=== PATIENT | female | born 1935 | race Caucasian/White ===

== ENCOUNTER → 2016-12-08 | Outpatient (REF) | payer MEDICARE, OTHER ==
[2016-12-11 00:07] LABS: Lyme Disease IgG/IgM Antibodie <0.91 ISR (0.00-0.90); Lyme Disease IgM Ab Quantitati <0.80 index (0.00-0.79)
== END ==
LOC: M LAB REF 13:41
PROVIDERS: ATTEND Internal Medicine
DX: L03.116 Cellulitis of left lower limb (principal)

== ENCOUNTER → 2017-06-04 | Outpatient (CLI) | payer MEDICARE, OTHER ==
[2017-06-04 15:49] LABS: BASO % 0.4 % (0.0-1.0); EOS # 0.1 10^3/uL (0.0-0.50); HEMATOCRIT 40.4 % (36.0-47.0); HEMOGLOBIN 13.3 g/dl (12.0-16.0); IMMATURE GRANULOCYTE % 0.1 % (0-3.0); LYMPH # 1.9 10^3/uL (1.5-4.5); MEAN CORPUSCULAR HEMOGLOBIN 31.9 pg (27.0-33.0); MEAN CORPUSCULAR HGB CONC 32.9 g/dl (32.0-36.5); MEAN CORPUSCULAR VOLUME 96.9 fl (80.0-96.0); MONO # 0.7 10^3/uL (0.0-0.8); MONO % 9.7 % (0.0-5.0); NEUTROPHILS # 4.1 10^3/uL (1.8-7.7); NEUTROPHILS % 60.8 % (36.0-66.0); PLATELET COUNT, AUTOMATED 210 10^3/uL (150-450); RED BLOOD COUNT 4.17 10^6/uL (4.00-5.40); RED CELL DISTRIBUTION WIDTH 12.7 % (11.5-14.5); WHITE BLOOD COUNT 6.7 10^3/uL (4.0-10.0)
[2017-06-04 16:00] LABS: INR 0.97
[2017-06-04 16:01] LABS: PARTIAL THROMBOPLASTIN TIME 29.9 SECONDS (26.8-37.9)
[2017-06-04 16:18] LABS: ALBUMIN 3.9 GM/DL (3.2-5.2); ALBUMIN/GLOBULIN RATIO 1.08 (1.00-1.93); ALKALINE PHOSPHATASE 96 U/L (45-117); ALT/SGPT 20 U/L (12-78); ANION GAP 6 MEQ/L (8-16); AST/SGOT 20 U/L (7-37); BILIRUBIN,TOTAL 0.4 MG/DL (0.2-1.0); BLOOD UREA NITROGEN 17 MG/DL (7-18); CALCIUM LEVEL 8.7 MG/DL (8.8-10.2); CARBON DIOXIDE LEVEL 30 MEQ/L (21-32); CHLORIDE LEVEL 105 MEQ/L (98-107); CREATININE FOR GFR 0.86 MG/DL (0.55-1.30); GLOMERULAR FILTRATION RATE > 60.0 (>32); GLUCOSE, FASTING 102 MG/DL (70-100); POTASSIUM SERUM 4.2 MEQ/L (3.5-5.1); SODIUM LEVEL 141 MEQ/L (136-145); TOTAL PROTEIN 7.5 GM/DL (6.4-8.2)
== END ==
LOC: M LAB 15:20
DX: I35.2 Nonrheumatic aortic (valve) stenosis with insufficiency (principal)
CPT/HCPCS: 80053

== ENCOUNTER 2017-06-15 16:53 | Emergency (ER) | payer MEDICARE, OTHER | END 2017-06-15 19:39 | disposition home or self-care (01) | LOC: M ED 16:53 | DX: G89.18 Other acute postprocedural pain (principal); M79.601 Pain in right arm; Z98.61 Coronary angioplasty status; I10 Essential (primary) hypertension; E78.5 Hyperlipidemia, unspecified; K21.9 Gastro-esophageal reflux disease without esophagitis; I35.0 Nonrheumatic aortic (valve) stenosis; R01.1 Cardiac murmur, unspecified; Z79.899 Other long term (current) drug therapy; Z88.8 Allergy status to other drugs, medicaments and biological substances | CPT/HCPCS: 93971 ==

== ENCOUNTER → 2018-06-28 | Outpatient (REF) | payer MEDICARE, OTHER ==
[~2018-06-28] MED LIST: CHLO125TA; CO Q200C10 PO; CRES5TAB; D 50CAP PO; ESCI10TA2; ESTR1CRE VA; FLUTISP; LANS15CA; LEVO75TA4; LISI-538; LORA-243; LORA0.5T11; NORCOTAB PO; SYST1SOL OU
[2018-06-28 18:55] LABS: BACTERIA, URINE AUTO NEGATIVE (NEGATIVE); RBC, URINE AUTO 3 /HPF (0-3); SQUAMOUS EPITHELIAL CELL UR AU 0 /HPF (0-6); WBC, URINE AUTO 1 /HPF (0-3)
== END ==
LOC: M LAB REF 16:59
PROVIDERS: ATTEND Internal Medicine
DX: R31.9 Hematuria, unspecified (principal)

== ENCOUNTER → 2018-10-26 | Outpatient (REF) | payer MEDICARE, OTHER ==
[~2018-10-26] MED LIST changes: +HYDR-3715 PO; -NORCOTAB PO
== END ==
LOC: M LAB REF 12:33
PROVIDERS: ATTEND Internal Medicine
DX: R06.02 Shortness of breath (principal)

== ENCOUNTER → 2018-12-23 | Outpatient (CLI) | payer MEDICARE, OTHER ==
[~2018-12-23] MED LIST changes: +ASPI81TA85 PO; +COLA100C5 PO; +CRES20TA2 PO; -LANS15CA; +LANS15CA PO; +LEVO88TA3 PO; +LEXA1TAB PO; -LORA-243; +LORA-243 PO; -LORA0.5T11; +LORA0.5T5 PO; +METO1TAB7 PO; +PLAV1TAB2 PO; +TRAM50TA2 PO
--- NOTE | 2018-12-23 16:25 | REP ---
Chest x-ray: Two views. History: Shortness of breath. Comparison chest x-ray: February 20, 2014. Findings: The patient is status post aortic valve replacement. The lungs are hyperinflated but clear. The pleural angles are sharp. The heart is not enlarged. The aorta is calcific and a little tortuous. Pulmonary vasculature is not increased. No significant bony abnormality is seen. Impression: Status post aortic valve replacement. No acute disease. Hyperinflation. Electronically Signed by James Odom MD 12/23/2018 04:17 P
== END ==
LOC: M RAD 15:41
PROVIDERS: ATTEND Internal Medicine
DX: R06.02 Shortness of breath (principal); Z98.890 Other specified postprocedural states; Z95.2 Presence of prosthetic heart valve

== ENCOUNTER 2019-02-21 13:04 | Outpatient (RCR) | payer MEDICARE, OTHER ==
--- NOTE | 2019-01-28 15:01 | CARECAPL ---
Assessment Account #s: Initial Assessment General Diagnoses: AVR (TAVR) Date of event: Dec 01, 2018 Physician: Sarahi Cerda Allergies: Coded Allergies: MS - Nitrofurantoin (Verified Allergy, Unknown, 10/05/17) Date Entered Program: Jan 28, 2019 Risk strat for cardiac event: Moderate Exercise Date: Jan 28, 2019 Assessment: Initial Assessment Stages of change: Preperation Exercise Prescription Plan TO EDUCATE AND BUILD ENDURANCE THROUGH MONITORED EXERCISE Modalities initiated: Treadmill (WILL ADD), Cardio-Strider (WILL ADD), Nustep (WILL ADD), Arm Aerometer (WILL ADD), Dumbells (WILL ADD), Recumbent Bike (WILL ADD) Frequency: 3 Duration (Minutes) 30 - 60 minutes total exercise a day. 15 - 20 work intervals in minutes. PRN rest intervals in minutes. Functional Capacity Goal Sustained Metabolic Equivalent of a task (MET) goal of 2.5-3.5 for 15-20 minutes. Intensity: 3-Moderate Progression (METS) Increase by: 0.5 METS every: 5 sessions TOLERATED Angina with ex: No Target Heart Rate REST +35-40 BETA JEANETTE THERAPY Resistance Training: Yes Weight (pounds): 1 Reps: 8-12 Hypertension: Yes Hypertension controlled with: Medication (METOPROLOL) Resting 143/66 Medications Scheduled Aspirin (Aspir 81), 81 MG PO DAILY, (Reported) Cholecalciferol (Vitamin D3) (Vitamin D3), 5,000 UNIT PO DAILY, (Reported) Clopidogrel Bisulfate (Plavix), 75 MG PO DAILY, (Reported) Escitalopram Oxalate (Lexapro), 10 MG PO DAILY, (Reported) Estradiol (Estrace), 0.1 MG VA 2XWK, (Reported) Lansoprazole (Lansoprazole), 15 MG PO DAILY, (Reported) Levothyroxine Sodium (Levothyroxine Sodium), 88 MCG PO DAILY, (Reported) Loratadine (Loratadine), 10 MG PO DAILY, (Reported) Metoprolol Succinate (Metoprolol Succinate), 50 MG PO QHS, (Reported) Rosuvastatin Calcium (Crestor), 20 MG PO DAILY, (Reported) Ubidecarenone (Co Q-10), 200 MG PO DAILY, (Reported) Scheduled PRN Docusate Sodium (Colace), 100 MG PO DAILYPRN PRN for CONSTIPATION, (Reported) Fluticasone Propionate (Fluticasone Propionate), 1 SPRAY NA DAILYPRN PRN for CONGESTION, (Reported) Lorazepam (Lorazepam), 0.5 MG PO BIDP PRN for ANXIETY, (Reported) Tramadol HCl (Tramadol HCl), 50 MG PO QHSP PRN for pain, (Reported) Miscellaneous Medications Escitalopram Oxalate (Escitalopram Oxalate), (Reported) Propylene Glycol/Peg 400 (Systane 0.3-0.4% Eye Drops), 1 DROP OU, (Reported) Discontinued Medications Chlorthalidone (Chlorthalidone), (Reported) Discontinued Reason: Pt states not taking Hydrocodone/Acetaminophen (Hydrocodone-Acetamin 5-325 mg), 1 TAB PO Q6H PRN for PAIN Discontinued Reason: Pt states not taking Levothyroxine Sodium (Levothyroxine Sodium), (Reported) Discontinued Reason: Pt states not taking Lisinopril (Lisinopril), (Reported) Discontinued Reason: Pt states not taking Rosuvastatin Calcium (Crestor), (Reported) Discontinued Reason: Pt states not taking Med Change: No Intervention Resistance Training: Yes Education: RPE Scale (REVIEWED RPE SCALE USED IN CARDIAC REHAB, PATIENT VERBALIZES UNDERSTANDING), warm up/cool down (INSTRUCTED PATIENT TO WARM UP / COOL DOWN PRIOR TO AND FOLLOWING EXERCISE), Understand BP (DISCUSSED NORMAL B/P FOR PATIENT), Physical Active (DISCUSSED IMPORTANCE OF CONTINUING TO EXERCISE FOLLOWING CARDIAC REHAB PROGRAM) Target Goals Individual exercise Rx (1) BP 140/90 or 130/80 if DM or CKD (1) Aerobic active 30+min 5 days per week (1) Nutrition Date: Jan 28, 2019 Assessment: Initial Assessment Stages of change: Preperation Lipid- med/supplement CRESTOR 20 MG DAILY Med Change: No Diabetes Diabetes: No Monitor Blood Sugar at home: No Medication Change: No Weight Management Weight (lbs): 149.4 Height (inches): 64 Waist Circumference (Inches): 36 BMI: 25.6 Weight goal: 140 Special Diet: regular Vitamin/Supplements: Vitamin D, Other (C0Q10) Alcohol: daily Alcohol Type: wine, liquor (GIN,VODKA,WINE/2 DRINKS DAILY) Alcohol Amount: 2 Diet Access Tool: Rate your plate Score: 81 Current Weight (pounds): 149.4 Weight Goal 140 Intervention Musical Engineer Consult: No Nurse/patient discussion: Yes Dietary Goals TO MAKE HEART HEALTHY CHOICES Diet Class: Yes (WILL SEE HOSPITAL AIDES AND ASSISTANTS TEACHER WHILE IN PROGRAM) Referral to Diabetes education: No Referral to lipid clinic: No Referral to weight mangement p: No Education Eating Healthy Target goal LDL-C<100 if triglycerides are >200 Non-HDL-C should be <130 (1) LDL-C<70 for high risk patients (4) HbA1c<7% (1) BMI<25 Waist cir<40in M/<35in F (1) Education Date: Jan 28, 2019 Assessment: Initial Assessment Learning Barriers: ready Knowledge Test Score: 4 Stages of change: Preperation Family Support: Yes Tobacco use: No Quit: >6 months (QUIT AT AGE 26) Tobacco Use Smokeless tobacco: No Intervention Referral to smoking cessation: No Individual education and couns: No Tobacco Adjunct: No Education class schedule given: No Attended education classes: No Education: med compliance (WILL DISCUSS IMPORTANCE OF MED COMPLIANCE) Target Goals Complete cessation of tobacco use (1). Psychosocial Date: Jan 28, 2019 Assessment: Initial Assessment Psych Test (Initial/Discharge) Tool Used: Other (PHQ-9) Score: 0 Stages of change: Preperation Intervention Physician Consult: No Physician Referral: No Psychotropic medication LEXAPRO 10 MG DAILY Med Change: No Stress Management Class: No Uses Stress Management Skills: Yes Education Education: Coping Techniques, S/S depression, Relaxation Techniques Target Goal Assess presence or absence of depression using a valid screening tool (1). Maximize coping skills (2). Positive support system (2). Patient/Program Goal Preventative Medication: Yes Aspirin, Yes Beta blockade, Yes Statin/OTR lipid Lowering Fall Risk Assess: Yes (NOT A FALL RISK) Provider Assessment Session Number: 1 Provider Assessment: Proceed with rehab Ramsey Wilkinson RN Jan 28, 2019 15:01
[~2019-02-21 13:04] MED LIST changes: +LORA0.5T11 PO; -LORA0.5T5 PO
--- NOTE | 2019-02-21 17:38 | CARECAPL ---
Assessment Account #s: Re-Assessment I General Diagnoses: AVR (TAVR) Date of event: Dec 01, 2008 Physician: Sarahi Cerda Allergies: Coded Allergies: MS - Nitrofurantoin (Verified Allergy, Unknown, 10/05/17) Date Entered Program: Jan 28, 2019 Risk strat for cardiac event: Moderate Exercise Date: Feb 21, 2019 Assessment: Re-Assessment I Stages of change: Preperation Exercise Prescription Plan TO EDUCATE AND BUILD CARDIOVASCULAR ENDURANCE THROUGH MONITORED EXERCISE Modalities initiated: Treadmill (METS=2.63/RPE=3.5), Cardio-Strider (METS=2.4/RPE=3), Arm Aerometer (METS=2.0/RPE=3), Dumbells (2#/RPE=3), Recumbent Bike (METS=2.6/RPE=3) Frequency: 3 Duration (Minutes) 30 - 60 minutes total exercise a day. 15 - 20 work intervals in minutes. PRN rest intervals in minutes. Functional Capacity Goal Sustained Metabolic Equivalent of a task (MET) goal of 2.5-3.5 for 15-20 minutes. Intensity: 3-Moderate Progression (METS) Increase by: 0.5 METS every: 5 sessions TOLERATED Angina with ex: No Target Heart Rate REST +35-40 PER BETA JEANETTE THERAPY Resistance Training: Yes Weight (pounds): 2 Reps: 8-12 Hypertension: Yes Hypertension controlled with: Medication (METOPROLOL) Resting 118/68 Peak Exercise BP 146/84 Medications Scheduled Aspirin (Aspir 81), 81 MG PO DAILY, (Reported) Cholecalciferol (Vitamin D3) (Vitamin D3), 5,000 UNIT PO DAILY, (Reported) Clopidogrel Bisulfate (Plavix), 75 MG PO DAILY, (Reported) Escitalopram Oxalate (Lexapro), 10 MG PO DAILY, (Reported) Estradiol (Estrace), 0.1 MG VA 2XWK, (Reported) Lansoprazole (Lansoprazole), 15 MG PO DAILY, (Reported) Levothyroxine Sodium (Levothyroxine Sodium), 88 MCG PO DAILY, (Reported) Loratadine (Loratadine), 10 MG PO DAILY, (Reported) Metoprolol Succinate (Metoprolol Succinate), 50 MG PO QHS, (Reported) Rosuvastatin Calcium (Crestor), 20 MG PO DAILY, (Reported) Ubidecarenone (Co Q-10), 200 MG PO DAILY, (Reported) Scheduled PRN Docusate Sodium (Colace), 100 MG PO DAILYPRN PRN for CONSTIPATION, (Reported) Fluticasone Propionate (Fluticasone Propionate), 1 SPRAY NA DAILYPRN PRN for CONGESTION, (Reported) Lorazepam (Lorazepam), 0.5 MG PO BIDP PRN for ANXIETY, (Reported) Tramadol HCl (Tramadol HCl), 50 MG PO QHSP PRN for pain, (Reported) Miscellaneous Medications Escitalopram Oxalate (Escitalopram Oxalate), (Reported) Propylene Glycol/Peg 400 (Systane 0.3-0.4% Eye Drops), 1 DROP OU, (Reported) Current BP 110/64 Med Change: No Intervention Home exercise: Type (WALKING, HAND WEIGHTS, JOIN LOCAL [employer] OR [id number]), Frequency (3-5 DAYS PER WEEK), Duration (30-60 MINUTES) Resistance Training: Yes Education: Self pulse (PATIENT DEMONSTRATES INDEPENDENTLY HOW TO TAKE HER OWN PULSE), Ex safety (PATIENT VERBALIZES UNDERSTANDING OF EXERCISING SAFTELY, WARM UP/COOL DOWN, STAY HYDRATED, COMFORTABLE CLOTHES AND SHOES), S/S to report (PT VERBALIZES UNDERSTANDING OF REPORTING CHEST PAIN, PRESSURE, SOB), Low NA diet (PATIENT VERBALIZES UNDERSTANDING OF IMPORTANCE OF STAYING ON LOW SODIUM DIET, IN RELATION TO B/P AND RETAINING FLUID), BP medication (DISCUSSED WHAT IS NORMAL B/P FOR THIS PATIENT), RPE Scale (REVIEWED RPE SCALE TO RATE EACH PIECE OF EQUIPMENT FOLLOWING EXERCISE, PATIENT VERBALIZES UNDERSTANDING), Equipment orientation (ORIENTED PATIENT TO EACH PIECE OF EQUIPMENT ADDED TO EXERCISE REGIMEN), warm up/cool down (PATIENT DEMONSTRATES INDEPENDENTLY WARM UP/COOL DOWN PRIOR TO AND FOLLOWING EXERCISE), Understand BP (REVIEWED B/P MEDS AND IDEAL B/P, PATIENT VERBALIZES UNDERSTANDING), Physical Active (PT VERBALIZES UNDERSTANDING OF IMPORTANCE OF CONTINUED EXERCISE FOLLOWING CARDIAC REHAB PROGRAM) Education Goals Met: No (PROGRESSING TOWARD GOALS) Target Goals Individual exercise Rx (1) BP 140/90 or 130/80 if DM or CKD (1) Aerobic active 30+min 5 days per week (1) Nutrition Date: Feb 21, 2019 Assessment: Re-Assessment I Stages of change: Preperation Lipid- med/supplement CRESTOR 20 MG PO DAILY Med Change: No Diabetes Diabetes: No Monitor Blood Sugar at home: No Medication Change: No Weight Management Weight (lbs): 149.4 Special Diet: low salt, low-fat Vitamin/Supplements: Vitamin D, Other (COQ10) Alcohol: daily Alcohol Type: wine, liquor (GIN, VODKA, WINE/2 DRINKS DAILY) Current Weight (pounds): 149.4 Intervention Research Staff Member Consult: No Nurse/patient discussion: Yes Dietary Goals TO MAKE HEART HEALTHY CHOICES CONSISTENTLY Diet Class: Yes (WILL SEE SECOND OFFICER WHILE IN PROGRAM) Referral to Diabetes education: No Referral to lipid clinic: No Referral to weight mangement p: No Education Eating Healthy Education Goals Met: No (PROGRESSING TOWARD GOALS) Target goal LDL-C<100 if triglycerides are >200 Non-HDL-C should be <130 (1) LDL-C<70 for high risk patients (4) HbA1c<7% (1) BMI<25 Waist cir<40in M/<35in F (1) Education Date: Feb 21, 2019 Assessment: Re-Assessment I Learning Barriers: ready Stages of change: Preperation Family Support: Yes Tobacco use: No Tobacco Use Smokeless tobacco: No Intervention Referral to smoking cessation: No Individual education and couns: No Tobacco Adjunct: No Education class schedule given: No Attended education classes: No Education: Risk factors (REVIEWED HIGH CHOL, HIGH B/P, LACK OF EXERCISE RISK FACTORS FOR CARDIOVASCULAR DISEASE), cardiac A&P (EDUCATIONAL MATERIAL GIVEN, REVIEWED ANATOMY OF HEART WITH PATIENT), Angina S/S (EDUCATIONAL MATERIAL GIVEN, DISCUSSED ANGINA, S/S AND WHAT TO DO IN CASE OF ANGINA) Education Goals Met: No (PROGRESSING TOWARD GOALS) Target Goals Complete cessation of tobacco use (1). Psychosocial Date: Feb 21, 2019 Assessment: Re-Assessment I Stages of change: Preperation Intervention Physician Consult: No Physician Referral: No Med Change: No Stress Management Class: No Uses Stress Management Skills: Yes Education Education: Coping Techniques (DISCUSSED POSSIBLE COPING TECHNIQUES SUCH TALKING), S/S depression (REVIEWED S/S OF DEPRESSION SUCH WITHDRAWAL, LACK OF INTEREST, LACK OF APPETITE), Relaxation Techniques (DISCUSSED TAKING TIME FOR SELF, QUIET TIME, READING, LISTENING TO MUSIC) Education Goals Met: No (PROGRESSING TOWARD GOALS) Target Goal Assess presence or absence of depression using a valid screening tool (1). Maximize coping skills (2). Positive support system (2). Patient/Program Goal Preventative Medication: Yes Aspirin, Yes Beta blockade, Yes Statin/OTR lipid Lowering Fall Risk Assess: Yes (NOT A FALL RISK) Provider Assessment Session Number: 5 Provider Assessment: Proceed with rehab Ramsey Wilkinson RN Feb 21, 2019 17:38
== END 2019-02-24 ==
LOC: M CR 13:04
PROVIDERS: ATTEND Internal Medicine
DX: Z95.4 Presence of other heart-valve replacement (principal)

== ENCOUNTER 2019-03-23 14:17 | Outpatient (RCR) | payer MEDICARE, OTHER ==
--- NOTE | 2019-03-14 11:29 | CARECAPL ---
Assessment Account #s: Re-Assessment II General Diagnoses: AVR ((TAVR)) Date of event: Dec 01, 2018 Physician: Sarahi Cerda Allergies: Coded Allergies: MS - Nitrofurantoin (Verified Allergy, Unknown, 10/05/17) Date Entered Program: Jan 28, 2019 Risk strat for cardiac event: Moderate Exercise Date: Mar 14, 2019 Assessment: Re-Assessment II Exercise Prescription Modalities initiated: Treadmill (1.7/1.5 MTS 2.54 RPE 3.5 12 MINUTES), Nustep (L5 MTS 4.5 RPE 3.5 10 MINUTES), Arm Aerometer (2.5 MTS 2.4 RPE 3 10 MINUTES), Dumbells, Recumbent Bike (R2 MTS 3.2 RPE 3.5 10 MINUTES) Duration (Minutes) 30 - 60 minutes total exercise a day. 15 - 20 work intervals in minutes. PRN rest intervals in minutes. Functional Capacity Goal Sustained Metabolic Equivalent of a task (MET) goal of 3.0-3.5 for 15-20 minutes. Progression (METS) Increase by: METS every: sessions Angina with ex: No Resistance Training: Yes Weight (pounds): 3 Reps: 6-8 Hypertension: Yes (148/88) Hypertension controlled with: Medication Resting 148/88 Peak Exercise BP 140/90 Meds SEE BELOW Medications Scheduled Aspirin (Aspir 81), 81 MG PO DAILY, (Reported) Cholecalciferol (Vitamin D3) (Vitamin D3), 5,000 UNIT PO DAILY, (Reported) Clopidogrel Bisulfate (Plavix), 75 MG PO DAILY, (Reported) Escitalopram Oxalate (Lexapro), 10 MG PO DAILY, (Reported) Estradiol (Estrace), 0.1 MG VA 2XWK, (Reported) Lansoprazole (Lansoprazole), 15 MG PO DAILY, (Reported) Levothyroxine Sodium (Levothyroxine Sodium), 88 MCG PO DAILY, (Reported) Loratadine (Loratadine), 10 MG PO DAILY, (Reported) Metoprolol Succinate (Metoprolol Succinate), 50 MG PO QHS, (Reported) Rosuvastatin Calcium (Crestor), 20 MG PO DAILY, (Reported) Ubidecarenone (Co Q-10), 200 MG PO DAILY, (Reported) Scheduled PRN Docusate Sodium (Colace), 100 MG PO DAILYPRN PRN for CONSTIPATION, (Reported) Fluticasone Propionate (Fluticasone Propionate), 1 SPRAY NA DAILYPRN PRN for CONGESTION, (Reported) Lorazepam (Lorazepam), 0.5 MG PO BIDP PRN for ANXIETY, (Reported) Tramadol HCl (Tramadol HCl), 50 MG PO QHSP PRN for pain, (Reported) Miscellaneous Medications Escitalopram Oxalate (Escitalopram Oxalate), (Reported) Propylene Glycol/Peg 400 (Systane 0.3-0.4% Eye Drops), 1 DROP OU, (Reported) Current BP 110/60 AFTER EXERCISE Med Change: No Intervention Home exercise: Type (WALKING, JOIN LOCAL GYM, [facility]), Frequency (3-5 DAYS A WEEK), Duration (30-60 MINUTES) Resistance Training: Yes (15-20 MINUTES 3-5 TIMES PER WEEK) Education Goals Met: Yes (SEE PRIOR ITP FOR EDUCATION COMPLETED) Target Goals Individual exercise Rx (1) BP 140/90 or 130/80 if DM or CKD (1) Aerobic active 30+min 5 days per week (1) Nutrition Date: Mar 14, 2019 Assessment: Re-Assessment II Stages of change: Contemplate Diabetes Diabetes: No Current Weight (pounds): 143 Intervention Stitch Burnisher Consult: Yes (WILL SEE DURING PROGRAM) Education Goals Met: No (PROGRESSING TOWARD GOALS) Target goal LDL-C<100 if triglycerides are >200 Non-HDL-C should be <130 (1) LDL-C<70 for high risk patients (4) HbA1c<7% (1) BMI<25 Waist cir<40in M/<35in F (1) Education Date: Mar 14, 2019 Assessment: Re-Assessment II Intervention Education class schedule given: Yes Education: med compliance (VERBALIZES IMPORTANCE OF TAKING MEDICATIONS), cardiac A&P (REVIEWED ANTOMY & PHYSIOLOGY) Education Goals Met: No (PROGRESSING TOWARD GOALS) Target Goals Complete cessation of tobacco use (1). Psychosocial Date: Mar 14, 2019 Assessment: Re-Assessment II Stress Management Class: Yes Uses Stress Management Skills: Yes Education Education: Coping Techniques (REVIEWED HOW TO HANDLE STRESS-VERY NERVOUS ABOUT EXERCISE) Education Goals Met: No (PROGRESSING) Target Goal Assess presence or absence of depression using a valid screening tool (1). Maximize coping skills (2). Positive support system (2). Provider Assessment Session Number: 9 Provider Assessment: No changes Theresa Antonio RN Mar 14, 2019 11:29
== END 2019-03-26 ==
LOC: M CR 14:17
PROVIDERS: ATTEND Internal Medicine
DX: Z51.89 Encounter for other specified aftercare (principal); Z95.4 Presence of other heart-valve replacement

== ENCOUNTER 2019-04-25 12:54 | Outpatient (RCR) | payer MEDICARE, OTHER ==
--- NOTE | 2019-04-04 08:30 | CARECAPL ---
Assessment Account #s: Re-Assessment II General Diagnoses: AVR (TVAR) Date of event: Dec 01, 2018 Physician: Sarahi Cerda Allergies: Coded Allergies: MS - Nitrofurantoin (Verified Allergy, Unknown, 10/05/17) Date Entered Program: Feb 04, 2019 Risk strat for cardiac event: Moderate Exercise Date: Apr 01, 2019 Assessment: Re-Assessment II Stages of change: Preperation Exercise Prescription Plan Educate on cardiovascular disease and increase endurance, strength and flexibility through a monitored exercise program. Modalities initiated: Treadmill (speed 2.0 incline 1.5 for 15 minutes Mets 2.81 RPE 3), Nustep (Resistance of 5 for 15 minutes Mets 4.3 RPE 3), Dumbells (3lbs 1 set 10 reps RPE 3), Recumbent Bike (resistance of 2 for 10 minutes Mets 2.6 RPE 3) Frequency: 2-3 Duration (Minutes) 30 - 60 minutes total exercise a day. 15 - 20 work intervals in minutes. PRN rest intervals in minutes. Functional Capacity Goal Sustained Metabolic Equivalent of a task (MET) goal of 3.5-4.5 for 15-20 minutes. Intensity: 3-Moderate Progression (METS) Increase by: 0.5 METS every: 3-5 sessions Angina with ex: No Target Heart Rate rest + 35-40 per beta malini therapy. Resistance Training: Yes Weight (pounds): 3 Reps: 8-12 Medications Scheduled Aspirin (Aspir 81), 81 MG PO DAILY, (Reported) Cholecalciferol (Vitamin D3) (Vitamin D3), 5,000 UNIT PO DAILY, (Reported) Clopidogrel Bisulfate (Plavix), 75 MG PO DAILY, (Reported) Escitalopram Oxalate (Lexapro), 10 MG PO DAILY, (Reported) Estradiol (Estrace), 0.1 MG VA 2XWK, (Reported) Lansoprazole (Lansoprazole), 15 MG PO DAILY, (Reported) Levothyroxine Sodium (Levothyroxine Sodium), 88 MCG PO DAILY, (Reported) Loratadine (Loratadine), 10 MG PO DAILY, (Reported) Metoprolol Succinate (Metoprolol Succinate), 50 MG PO QHS, (Reported) Rosuvastatin Calcium (Crestor), 20 MG PO DAILY, (Reported) Ubidecarenone (Co Q-10), 200 MG PO DAILY, (Reported) Scheduled PRN Docusate Sodium (Colace), 100 MG PO DAILYPRN PRN for CONSTIPATION, (Reported) Fluticasone Propionate (Fluticasone Propionate), 1 SPRAY NA DAILYPRN PRN for CONGESTION, (Reported) Lorazepam (Lorazepam), 0.5 MG PO BIDP PRN for ANXIETY, (Reported) Tramadol HCl (Tramadol HCl), 50 MG PO QHSP PRN for pain, (Reported) Miscellaneous Medications Escitalopram Oxalate (Escitalopram Oxalate), (Reported) Propylene Glycol/Peg 400 (Systane 0.3-0.4% Eye Drops), 1 DROP OU, (Reported) Current BP 128/80 Med Change: No Intervention Education: BP medication (Patient stated the purpose of metoprolol is to low BP and heart rate.) Education Goals Met: No (See education on prior ITP will continue to educate further.) Target Goals Individual exercise Rx (1) BP 140/90 or 130/80 if DM or CKD (1) Aerobic active 30+min 5 days per week (1) Nutrition Date: Apr 04, 2019 Assessment: Re-Assessment II Stages of change: Preperation Med Change: No Diabetes Diabetes: No Current Weight (pounds): 145.4 Intervention Lozenge Maker Helper Consult: No Nurse/patient discussion: Yes Dietary Goals eat healthier portions. Diet Class: No Education Goals Met: No (See education on prior ITP's but we will continue to educate throughout program.) Target goal LDL-C<100 if triglycerides are >200 Non-HDL-C should be <130 (1) LDL-C<70 for high risk patients (4) HbA1c<7% (1) BMI<25 Waist cir<40in M/<35in F (1) Education Date: Apr 04, 2019 Assessment: Re-Assessment II Stages of change: Preperation Education Goals Met: No (See education on prior ITP's but we will educate throughout program.) Target Goals Complete cessation of tobacco use (1). Psychosocial Date: Apr 04, 2019 Assessment: Re-Assessment II Stages of change: Preperation Med Change: No Stress Management Class: Yes Uses Stress Management Skills: Yes Education Goals Met: No (See educate on prior ITP's but we will continue to educate throughout program.) Target Goal Assess presence or absence of depression using a valid screening tool (1). Maximize coping skills (2). Positive support system (2). Patient/Program Goal Preventative Medication: Yes Aspirin, Yes Clopidogrel, Yes Beta blockade, Yes Statin/OTR lipid Lowering Fall Risk Assess: Yes (not a fall risk) Provider Assessment Session Number: 15 Provider Assessment: Proceed with rehab (progressing well in cardiac rehab.) Patricia Ferro RN Apr 04, 2019 08:30
== END 2019-04-26 ==
LOC: M CR 12:54
PROVIDERS: ATTEND Internal Medicine
DX: Z51.89 Encounter for other specified aftercare (principal); Z95.4 Presence of other heart-valve replacement

== ENCOUNTER 2019-04-29 13:28 | Outpatient (RCR) | payer MEDICARE, OTHER ==
[~2019-04-29 13:28] MED LIST changes: -LORA0.5T11 PO; +LORA0.5T5 PO
--- NOTE | 2019-04-29 16:34 | CARECAPL ---
Assessment Account #s: Discharge General Diagnoses: AVR (TAVR) Date of event: Dec 01, 2018 Physician: Sarahi Cerda Allergies: Coded Allergies: MS - Nitrofurantoin (Verified Allergy, Unknown, 10/05/17) Date Entered Program: Jan 28, 2019 Risk strat for cardiac event: Moderate Exercise Date: Apr 29, 2019 Assessment: Followup/Discharge Stages of change: action Exercise Prescription Plan TO EDUCATE AND BUILD ENDURANCE THROUGH MONITORED EXERCISE Modalities initiated: Treadmill (METS=3.29/RPE=3), Nustep (METS=4.9/RPE=3), Recumbent Bike (METS=3.7/RPE=3) Frequency: 3 Duration (Minutes) 30 - 60 minutes total exercise a day. 15 - 20 work intervals in minutes. PRN rest intervals in minutes. Functional Capacity Goal Sustained Metabolic Equivalent of a task (MET) goal of 2.5-3.5 for 15-20 minutes. Progression (METS) Increase by: METS every: sessions Angina with ex: No Target Heart Rate REST +35-40 BASED ON BETA JEANETTE THERAPY Resistance Training: No (AWAITING ORTHO F/U FOR POSSIBLE SHOULDER SURGERY) Hypertension: Yes Hypertension controlled with: Medication (METOPROLOL) Resting 138/80 Peak Exercise BP 160/90 Medications Scheduled Aspirin (Aspir 81), 81 MG PO DAILY, (Reported) Cholecalciferol (Vitamin D3) (Vitamin D3), 5,000 UNIT PO DAILY, (Reported) Clopidogrel Bisulfate (Plavix), 75 MG PO DAILY, (Reported) Escitalopram Oxalate (Lexapro), 10 MG PO DAILY, (Reported) Estradiol (Estrace), 0.1 MG VA 2XWK, (Reported) Lansoprazole (Lansoprazole), 15 MG PO DAILY, (Reported) Levothyroxine Sodium (Levothyroxine Sodium), 88 MCG PO DAILY, (Reported) Loratadine (Loratadine), 10 MG PO DAILY, (Reported) Metoprolol Succinate (Metoprolol Succinate), 50 MG PO QHS, (Reported) Rosuvastatin Calcium (Crestor), 20 MG PO DAILY, (Reported) Ubidecarenone (Co Q-10), 200 MG PO DAILY, (Reported) Scheduled PRN Docusate Sodium (Colace), 100 MG PO DAILYPRN PRN for CONSTIPATION, (Reported) Fluticasone Propionate (Fluticasone Propionate), 1 SPRAY NA DAILYPRN PRN for CONGESTION, (Reported) Lorazepam (Lorazepam), 0.5 MG PO BIDP PRN for ANXIETY, (Reported) Tramadol HCl (Tramadol HCl), 50 MG PO QHSP PRN for pain, (Reported) Miscellaneous Medications Escitalopram Oxalate (Escitalopram Oxalate), (Reported) Propylene Glycol/Peg 400 (Systane 0.3-0.4% Eye Drops), 1 DROP OU, (Reported) Current BP 132/68 Med Change: No Intervention Resistance Training: No Education: Self pulse (SEE PREVIOUS ITP'S FOR EDUCATION, REINFORCEMENT CONTINUED THROUGHOUT PROGRAM) Education Goals Met: Yes Target Goals Individual exercise Rx (1) BP 140/90 or 130/80 if DM or CKD (1) Aerobic active 30+min 5 days per week (1) Nutrition Date: Apr 29, 2019 Assessment: Followup/Discharge Stages of change: action Lipid- med/supplement CRESTOR Med Change: No Diabetes Diabetes: No Special Diet: low salt, low-fat Vitamin/Supplements: Vitamin D Current Weight (pounds): 147 Intervention Urgent Care Nurse Practitioner Consult: No Nurse/patient discussion: Yes Dietary Goals TO MAKE HEART HEALTHY CHOICES FOR MEAL PLANNING Referral to Diabetes education: No Referral to lipid clinic: No Referral to weight mangement p: No Education Eating Healthy Education Goals Met: Yes Target goal LDL-C<100 if triglycerides are >200 Non-HDL-C should be <130 (1) LDL-C<70 for high risk patients (4) HbA1c<7% (1) BMI<25 Waist cir<40in M/<35in F (1) Education Date: Apr 29, 2019 Assessment: Followup/Discharge Learning Barriers: ready Stages of change: action Family Support: Yes Tobacco use: No Tobacco Use Smokeless tobacco: No Intervention Referral to smoking cessation: No Individual education and couns: No Tobacco Adjunct: No Education class schedule given: No Attended education classes: No Education: tobacco triggers (SEE EDUCATION ON PRIOR ITP'S, CONTINUED TO REINFORCE WHILE IN PROGRAM) Education Goals Met: Yes Target Goals Complete cessation of tobacco use (1). Psychosocial Date: Apr 29, 2019 Assessment: Followup/Discharge Intervention Physician Consult: No Physician Referral: No Med Change: No Stress Management Class: No Uses Stress Management Skills: Yes Education Education: Coping Techniques (SEE EDUCATION ON PRIOR ITP'S, CONTINUED TO REINFORCE WHILE IN PROGRAM) Education Goals Met: Yes (PT HAD GOOD ATTENDENCE AND GOOD ATTITUDE TOWARD EXERCISE, PLANS TO ATTEND MEET PROGRAM) Target Goal Assess presence or absence of depression using a valid screening tool (1). Maximize coping skills (2). Positive support system (2). Patient/Program Goal Preventative Medication: Yes Aspirin, Yes Clopidogrel, Yes Beta blockade, Yes Statin/OTR lipid Lowering Fall Risk Assess: Yes (NOT A FALL RISK) Provider Assessment Session Number: [id number] Ramsey Wilkinson RN Apr 29, 2019 16:34
== END 2019-05-27 ==
LOC: M CR 13:28
PROVIDERS: ATTEND Internal Medicine
DX: Z95.4 Presence of other heart-valve replacement (principal)

== ENCOUNTER 2019-05-06 14:11 | Outpatient (RCR) | payer MEDICARE, OTHER | END 2019-05-27 | LOC: M CR 14:11 | PROVIDERS: ATTEND Internal Medicine | DX: Z95.4 Presence of other heart-valve replacement (principal) ==

== ENCOUNTER 2019-06-08 14:00 | Outpatient (RCR) | payer MEDICARE, OTHER | END 2019-06-25 | LOC: M CR 14:00 | PROVIDERS: ATTEND Internal Medicine | DX: Z95.4 Presence of other heart-valve replacement (principal) ==

== ENCOUNTER → 2019-06-27 | Outpatient (REF) | payer MEDICARE, OTHER | LOC: M LAB REF 15:32 | PROVIDERS: ATTEND Nurse Practitioner Family | DX: L08.9 Local infection of the skin and subcutaneous tissue, unspecified (principal) ==

== ENCOUNTER → 2019-07-07 | Outpatient (REF) | payer MEDICARE, OTHER | LOC: M LAB REF 10:33 | PROVIDERS: ATTEND Surgery | DX: C44.729 Squamous cell carcinoma of skin of left lower limb, including hip (principal) ==

== ENCOUNTER → 2021-07-04 | Outpatient (CLI) | payer MEDICARE, OTHER ==
[~2021-07-04] MED LIST changes: -ASPI81TA85 PO; +ASPI81TA86 PO; +ESCI10TA16; -ESCI10TA2; -LISI-538; +LISI20TA33
== END ==
LOC: M WHC 11:51
PROVIDERS: ATTEND Internal Medicine
DX: I73.9 Peripheral vascular disease, unspecified (principal)

== ENCOUNTER → 2021-10-31 | Outpatient (CLI) | payer MEDICARE | LOC: M PLAIMG 08:11 | PROVIDERS: ATTEND Internal Medicine | DX: R41.9 Unspecified symptoms and signs involving cognitive functions and awareness (principal) ==

== ENCOUNTER → 2021-11-18 | Outpatient (REF) | payer MEDICARE | LOC: M LAB REF 17:06 | PROVIDERS: ATTEND Surgery | DX: L82.1 Other seborrheic keratosis (principal) ==

== ENCOUNTER → 2022-01-10 | Outpatient (REF) | payer MEDICARE, OTHER ==
[2022-01-10 16:11] LABS: HIV 1&2 SCREEN CENTAUR NEGATIVE (NEGATIVE); VITAMIN B12 LEVEL 321 PG/ML (247-911)
== END ==
LOC: M LAB REF 12:12
PROVIDERS: ATTEND Internal Medicine
DX: G31.84 Mild cognitive impairment of uncertain or unknown etiology (principal)

== ENCOUNTER → 2023-08-12 | Outpatient (REF) | payer MEDICARE, OTHER ==
[~2023-08-12] MED LIST changes: +CLOP75TA99 PO; -PLAV1TAB2 PO
== END ==
LOC: M LAB REF 16:04
PROVIDERS: ATTEND Surgery
DX: L94.2 Calcinosis cutis (principal)

== ENCOUNTER → 2023-12-07 | Outpatient (CLI) | payer MEDICARE, OTHER ==
[~2023-12-07] MED LIST changes: +E-Z-GAS II EFFERVESCENT PACKET (SODIUM BICARB./CITRIC ACID/SIMETHICONE) As Ordered ONE; +E-Z-HD 98% w/w 340GM SUSP BTL As Ordered ONE; +E-Z-PAQUE 96% w/w SUSP 176GM BTL As Ordered ONE
== END ==
LOC: M RAD 09:23
PROVIDERS: ATTEND Internal Medicine
DX: J31.2 Chronic pharyngitis (principal); K57.10 Diverticulosis of small intestine without perforation or abscess without bleeding; R13.10 Dysphagia, unspecified

== ENCOUNTER 2024-06-22 19:28 | Emergency (ER) | payer MEDICARE, OTHER ==
[~2024-06-22] VITALS: Ht 165.1 cm; Wt 66.6 kg
[~2024-06-22 19:28] MED LIST changes: -E-Z-GAS II EFFERVESCENT PACKET (SODIUM BICARB./CITRIC ACID/SIMETHICONE) As Ordered ONE; -E-Z-HD 98% w/w 340GM SUSP BTL As Ordered ONE; -E-Z-PAQUE 96% w/w SUSP 176GM BTL As Ordered ONE
[2024-06-22 23:41] VITALS: TEMP 97
[2024-06-23] MEDS: MORPHINE 4 MG/ML 1ML VIAL IV ONE (01:46)
[2024-06-23] MEDS: ONDANSETRON 4MG 2ML VIAL IV ONE (01:46)
[2024-06-23 03:46] VITALS: BP 177/72
[2024-06-23] MEDS: PERCOCET 5MG/325MG TAB PO ONE (03:49)
[2024-06-23 04:25] VITALS: O2SAT 99
[2024-06-23] MEDS ORDERED: PERC5TAB12 PO (04:32)
[2024-06-23 04:49] VITALS: O2SAT 97
== END 2024-06-23 05:00 | disposition home or self-care (01) ==
LOC: M ED 19:28
DX: S22.42XA Multiple fractures of ribs, left side, initial encounter for closed fracture (principal); W00.9XXA Unspecified fall due to ice and snow, initial encounter; J98.11 Atelectasis; M41.34 Thoracogenic scoliosis, thoracic region; I10 Essential (primary) hypertension; K21.9 Gastro-esophageal reflux disease without esophagitis; E03.9 Hypothyroidism, unspecified; Z88.8 Allergy status to other drugs, medicaments and biological substances; Y92.009 Unspecified place in unspecified non-institutional (private) residence as the place of occurrence of the external cause; Y93.89 Activity, other specified; Y99.9 Unspecified external cause status
CPT/HCPCS: 70450; 71111; 72125; 72128; 72131; 73521; 73552; 94010; 96374; 99284; J2405